=== PATIENT | male | born 1960 | race Caucasian/White ===

== ENCOUNTER 2024-11-10 13:06 | Outpatient (CLI) | payer MEDICARE, OTHER ==
[~2024-11-10 13:06] MED LIST: Magnevist 469MG/ML 20 ML VIAL ONE
== END 2024-11-10 13:07 | disposition home or self-care (01) ==
LOC: CSHMRI 13:06
PROVIDERS: ATTEND Urology
DX: C61 Malignant neoplasm of prostate (principal); I87.1 Compression of vein; I86.8 Varicose veins of other specified sites
CPT/HCPCS: 36415; 72197; 82565